=== PATIENT | female | born 1945 | race Caucasian/White ===

== ENCOUNTER → 2020-02-24 13:04 | Outpatient (BNVA) | payer MEDICARE, MEDICAID, SELFPAY | PROVIDERS: Referring Provider Nurse Practitioner Family; Visit Provider Specialist | DX: G31.84 Mild cognitive impairment of uncertain or unknown etiology (principal); R26.9 Unspecified abnormalities of gait and mobility; R41.0 Disorientation, unspecified; R51 Headache | CPT/HCPCS: 99205 ==

== ENCOUNTER 2020-03-05 12:07 | Outpatient (CLI) | payer MEDICARE, MEDICAID, SELFPAY ==
--- NOTE | 2020-03-05 13:00 | MR_ITS ---
WS: [id number] MRI HEAD WITHOUT CONTRAST TECHNIQUE: Sagittal T1, T2 axial, T2 axial FLAIR, axial and coronal T1 images, axial susceptibility w eighted imaging, axial diffusion weighted images, and coronal T2 images were obtained. CLINICAL INFORMATION: R26.89 Other abnormalities of gait and mobility COMPARISON: None. FINDINGS: No evidence of restricted diffusion to suggest acute ischemia. Ventricular system and basal cisterns are patent. Moderate patchy supra and infratentorial white matter changes consistent with small vesse l disease in a patient this age. Moderate parenchymal volume loss. Small vessel changes in the foster. Normal cerebellum. Normal vascular flow voids at the skull base. No extra-axial fluid collections. Paranasal sinuses and mastoid air cells are well aerated. No hemosiderin on the susceptibly weighted images. Visualized orbits are normal in appearance. Upper cervical spine is patent. Normal optic chiasm and pituitary infundibulum. Meckel's cave is normal in appearance. Normal caverno us sinuses. Visualized proximal 7th and 8th cranial nerves are normal. Moderate symmetric atrophy inv olving the temporal lobes and hippocampal formations. No signal abnormality in the temporal lobes. MR/MR head wo con* [id number] IMPRESSION: 1. No evidence of restricted diffusion to suggest acute ischemia. 2. Moderate small vessel changes with moderate diffuse parenchymal volume loss . 3. Small vessel changes in the foster. 4. 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 5. No hemosiderin on susceptibly weighted images. 6. No other significant findings.
== END 2020-03-05 12:08 | disposition home or self-care (01) ==
LOC: RADSHAW 12:13
PROVIDERS: Visit Provider Specialist
DX: R26.89 Other abnormalities of gait and mobility (principal); G31.9 Degenerative disease of nervous system, unspecified
CPT/HCPCS: 70551

== ENCOUNTER → 2020-03-10 09:16 | Outpatient (BNVA) | payer MEDICARE, MEDICAID, SELFPAY | PROVIDERS: Visit Provider Specialist | DX: R41.3 Other amnesia (principal) | CPT/HCPCS: 95816 ==

== ENCOUNTER → 2020-04-16 12:01 | Outpatient (BNVA) | payer MEDICARE, MEDICAID, SELFPAY | PROVIDERS: Visit Provider Specialist | DX: G31.83 Neurocognitive disorder with Lewy bodies (principal); F02.80 Dementia in other diseases classified elsewhere, unspecified severity, without behavioral disturbance, psychotic disturbance, mood disturbance, and anxiety; R25.1 Tremor, unspecified; R26.9 Unspecified abnormalities of gait and mobility; G43.711 Chronic migraine without aura, intractable, with status migrainosus | CPT/HCPCS: 99214 ==

== ENCOUNTER → 2020-07-22 14:23 | Outpatient (BNVA) | payer MEDICARE, MEDICAID, SELFPAY | PROVIDERS: PCP Nurse Practitioner Family; Visit Provider Specialist | DX: R25.1 Tremor, unspecified (principal); G43.711 Chronic migraine without aura, intractable, with status migrainosus; G31.84 Mild cognitive impairment of uncertain or unknown etiology; G92 Toxic encephalopathy; Z87.891 Personal history of nicotine dependence | CPT/HCPCS: 99214 ==

== ENCOUNTER 2021-12-06 11:29 | Outpatient (CLI) | payer MEDICARE, MEDICAID, SELFPAY ==
--- NOTE | 2021-12-06 11:00 | US_ITS ---
WS: [id number] ULTRASOUND-GUIDED RIGHT BREAST BIOPSY HISTORY: N64.59 - Other signs and symptoms in breast COMPARISON: Mammogram 11/03/2021 and breast ultrasound 11/03/2021. Procedure, risks and complications are explained to the patient. Medications are reviewed. Consent is obtained. After discussing the procedure with the patient and obtaining additional history the mass in the RIGH T breast is thought to be a large hematoma. The debris within the mass was mobile with change in posi tion of the patient. Patient admits to having significant trauma to the RIGHT breast within the last year. There is no vascularity throughout this complex mass. There is through transmission. At this ti me and needle was inserted into the mass and approximately 30 cc of cloudy, bloody material was aspir ated without difficulty. There was no residual mass after aspiration. No core biopsy will be performe d. Material was collected and placed in a sterile container for pathology. Breast tissue marker (Bard ultrasound enhanced ribbon): None. Patient left the radiology suite with no complications. Patient [place] [facility] [facility] with any concerns. US/US guide [facility] asp a/c/h [id number] IMPRESSION: 1. Uncomplicated aspiration of a RIGHT breast mass which is thought to be a la rge hematoma. Approximately 30 cc of bloody, cloudy aspirate was obtained and s ent for histology. May be a combination of a seroma and hematoma from the traum a. 2. Findings were discussed with the pathologist. PATHOLOGY: No malignancy identified. RECOMMENDATION: Diagnostic RIGHT mammogram 6 months. Favor the mass noted on pr ior mammogram is probably traumatic hematoma. This aspirated nearly completely.
--- NOTE | 2021-12-06 11:38 | US_ITS ---
WS: [id number] ULTRASOUND-GUIDED RIGHT BREAST BIOPSY HISTORY: N64.59 - Other signs and symptoms in breast COMPARISON: Mammogram 11/03/2021 and breast ultrasound 11/03/2021. Procedure, risks and complications are explained to the patient. Medications are reviewed. Consent is obtained. After discussing the procedure with the patient and obtaining additional history the mass in the RIGH T breast is thought to be a large hematoma. The debris within the mass was mobile with change in posi tion of the patient. Patient admits to having significant trauma to the RIGHT breast within the last year. There is no vascularity throughout this complex mass. There is through transmission. At this ti me and needle was inserted into the mass and approximately 30 cc of cloudy, bloody material was aspir ated without difficulty. There was no residual mass after aspiration. No core biopsy will be performe d. Material was collected and placed in a sterile container for pathology. Breast tissue marker (Bard ultrasound enhanced ribbon): None. Patient left the radiology suite with no complications. Patient is instructed to return to [facility] or [facility] with any concerns.
== END 2021-12-06 11:30 | disposition home or self-care (01) ==
LOC: RAD 11:34
PROVIDERS: PCP Family Medicine; Visit Provider Surgery
DX: N64.59 Other signs and symptoms in breast (principal); R92.8 Other abnormal and inconclusive findings on diagnostic imaging of breast; N63.10 Unspecified lump in the right breast, unspecified quadrant
CPT/HCPCS: 10160; 19083; 76942; 87070; 87075; 87205; 88108; 88305

== ENCOUNTER → 2021-12-16 15:45 | Outpatient (BNVA) | payer MEDICARE, MEDICAID, SELFPAY | PROVIDERS: PCP Family Medicine; Visit Provider Surgery | DX: Z09 Encounter for follow-up examination after completed treatment for conditions other than malignant neoplasm (principal); N63.10 Unspecified lump in the right breast, unspecified quadrant | CPT/HCPCS: 99212 ==